=== PATIENT | male | born 1980 | race Hispanic/Latino ===

== ENCOUNTER 2021-04-16 13:18 | Inpatient (IN) | payer OTHER ==
--- OUTSIDE RECORDS SUMMARY | 2021-04-16 13:22 | XMS REPORT | Continuity of Care Document ---
:1980 Author Organization [facility] t Address [address] [place] [address] Care Team Providers Name Role Phone Sammy Mccarty Attending Clinician Problems Condition Condition Condition Status Onset Resolution Last Treating Co mments Source Name Details Category Date Date Treatment Clinician Date Varicella Problem Resolve 2019-02-07 M emoria (disorder) d 13:36:54 l [place] Varicella (disorder) Resolved Problem 02/07/2019 [facility] Allergic Problem Active 2019-02-07 Mem oria rhinitis 13:36:54 l due to Allergic Quinten n pollen rhinitis (disorder) due to pollen (disorder) Active Problem 02/07/2019 [facility] Asthma Problem Active 2019-02-07 Memor ia (disorder) 13:36:54 l Asthma Iraj (disorder) Active Problem 02/07/2019 [facility] Obesity Problem Active 2019-02-07 Tha katty (disorder) 13:36:54 l Obesity Iraj (disorder) Active Problem 02/07/2019 [facility] Allergies, Adverse Reactions, Alerts Allergy Allergy Status Severity Reaction(s) Onset Inactive Treating Comm ents Source Name Type Date Date Clinician Food Food Active Mild Memoria Shellfis Shellfis l nathaniel Galo Social History Social Habit Start Date Stop Date Quantity Comments Source Social History 2016-04-05 2016-04-05 Mami rodriguez 21:08:23 21:08:23 Medications Ordered Filled Start Stop Current Ordering Indication Dosage Frequency Signature Comments Components Source Medication Medication Date Date Medication? Clinician (SIG) Name Name omeprazole 2018-0 Yes 40 mg = 1 Me moria 40 mg oral 5-14 cap, PO, l delayed 20:53: Daily, # Quinten n release 05 30 cap, 3 capsule Refill(s), Pharmacy: [facility] [id number] montelukast 2018-0 Yes 10 mg = 1 M emoria 10 MG Oral 5-14 tab, PO, l Tablet 20:53: Bedtime, # Latosha nn [Singulair] 00 30 tab, 5 Refill(s), Pharmacy: [facility] [id number] Symbicort 2018-0 Yes 2 puff, Memor ia 80/4.5 5-14 INHALATION l inhalation 20:52: , BID, Coco fisher aerosol 57 10.2 gm, 5 with Refill(s), adapter Pharmacy: [email or web address] [id number] 200 ACTUAT 2018-0 Yes 180 Memoria Albuterol 5-14 microgram l 0.09 20:52: = 2 puff, [place] MG/ACTUAT 00 INHALER, Metered Q4H, PRN Dose wheezing, Inhaler coughing, [ProAir or HFA] shortness of breath, # 1 ea, 3 Refill(s), Pharmacy: [facility] [id number] Symbicort Symbicort Yes Leoncio [address] [facility] ProAir HFA ProAir HFA Yes Leoncio [address] [facility] Vital Signs Vital Name Observation Time Observation Value Comments Source BMI Calculated 2018-01-23 20:27:00 Memori al Iraj Systolic (mm Hg) 2018-01-23 20:27:00 Tha rial Iraj Diastolic (mm Hg) 2018-01-23 20:27:00 Mem orial Iraj Temperature Oral (F) 2018-01-23 20:27:[address] [facility] [place] Heart Rate 2018-01-23 20:27:00 [facility] Height 2018-01-23 20:27:[address] [facility] Iraj Weight 2018-01-23 20:27:00 [facility] Iraj Procedures Procedure Date / Time Performed Performing Clinician Nhan Galo Surgical removal of Mami fisher wisdom tooth Encounters Start End Encounter Admission Attending Care Care Encounter Source Date/Time Date/Time Type Type Clinicians Facility Department ID 2021-04-13 2021-04-13 [id number] 2021-04-13 2021-04-13 [facility] [id number] [facility] 2021-01-19 2021-01-19 [facility] [id number] [facility] 2020-09-16 2020-09-16 [facility] [id number] [facility] 2020-07-21 2020-07-21 Out[facility] [id number] [facility] 2020-07-15 2020-07-15 [facility] [id number] [facility] 2020-06-24 2020-06-24 Out[facility] [id number] [facility] 2019-12-04 2019-12-04 [facility] [id number] [facility] 15[facility] 15:50[facility]00 [facility] [place] [facility] s - Drive [facility] Medicine l Medicine Outpati ent Clinics 2019-04-02 2019-04-02 [facility] [id number] 09:45:00 09:45:00 [place] [employer] s - Drive [facility] l Medicine Outpat[facility] ent Clinics 2019-01-16 2019-01-16 [facility] [id number] 08:58:00 08:58:00 [facility] [place] [facility] s - Drive [facility] Medicine l Medicine Outpati ent Clinics 2019-01-08 2019-01-08 [facility] [id number] 11:45:00 11:45:00 [facility] [place] [facility] s - Drive [facility] Medicine l Medicine Outpati ent Clinics 2018-07-21 2018-07-21 Outpatient TASHI Mccarty [facility] [id number] 08:00:00 08:00:00 Jairo Christianson 2018-03-24 2018-03-24 [facility] [id number] 10:15:00 10:15:00 [employer] [facility] ent [facility] 2018-02-14 2018-02-14 Outpatient Pooja Pattont [id number] 13:30:00 13:30:00 [employer] [facility] ent [facility] 2018-01-23 2018-01-23 Outpatient Lul [facility] [id number] 15:15:00 23:59:59 Jairo Christianson Results This patient has no known results.
[2021-04-16] MEDS ORDERED: METHYLPREDNISOLONE 125 MG INJ ONE (19:00)
[2021-04-16] MEDS ORDERED: ALBUTEROL INHALER 60 PUFF/8 GM IH ONE (19:00)
[2021-04-16] MEDS ORDERED: NA CHLORIDE 0.9% 1,000 ML ONE (19:00)
--- NOTE | 2021-04-16 19:01 | RAD REPORT ---
EXAM DESCRIPTION: RAD - Chest Single View - 04/16/2021 6:48 pm CLINICAL HISTORY: Cough;SOB COMPARISON: None TECHNIQUE: AP portable chest image was obtained 04/16/2021 6:48 pm . FINDINGS: Bilateral airspace opacification is present in the lower lung hamlin, worse on the right. Each apex is generally spared. Opacification is more peripheral than central. Bilateral pneumonia is the primary consideration. In the current clinical environment, COVID-19 pneumonia would be likely et iology. Heart and vasculature are normal. No measurable pleural effusion and no pneumothorax. No acute bony abnormality seen. No acute aortic finding. Fullness along the right side of the mediastinum is believ ed to be affects of tortuous vasculature. IMPRESSION: Bilateral pneumonia in the lower lung hamlin. Pattern is nonspecific. In the current clinical environment, COVID-19 pneumonia would be a primary co nsideration.
[2021-04-16 19:31] LABS: Protime INR 1.2
[2021-04-16 19:33] LABS: Absolute Lymphocytes (CBC) 0.6 K/uL (0.7-4.9); Basophils % 0.2 % (0-1.3); Hematocrit 44.3 % (39.6-49.0); Lymphocytes % 5.1 % (15.3-44.8); MPV 9.4 fL (7.6-11.3); RBC Red Blood Cell Count 4.81 M/uL (4.33-5.43)
[2021-04-16] MEDS ORDERED: ACETAMINOPHEN 500 MG TAB ONE (19:54)
[2021-04-16 20:02] LABS: Blood Morphology Comment NOT SEEN (NOT SEEN); Platelet Estimate ADEQ; White Blood Cell Scan OK (OK)
[2021-04-16 20:30] LABS: ALT/SGPT 81 U/L (12-78); AST/SGOT 55 U/L (15-37); Albumin 3.6 g/dL (3.4-5.0); Alkaline Phosphatase 109 U/L (45-117); BUN Blood Urea Nitrogen 15 mg/dL (7-18); Bicarbonate 29 mmol/L (21-32); Bilirubin Direct 0.7 mg/dL (0-0.2); Glucose Level 98 mg/dL (74-106); Magnesium 2.1 mg/dL (1.8-2.4); NT PRO-BNP 23 pg/mL (<125); Potassium 3.4 mmol/L (3.5-5.1); Protein, Total 8.3 g/dL (6.4-8.2); Sodium Level 134 mmol/L (136-145); Troponin (Emerg Dept Use Only) < 0.02 ng/mL (0.0-0.045)
--- NOTE | 2021-04-16 20:47 | EDPHYS ---
Physician Documentation [facility] Name: Roman Smart Age: 40 yrs Sex: Male : 1980 Arrival Date: 04/16/2021 Time: 13:20 Bed 15 Private MD: ED Physician Brayan Delgadillo HPI: 04/16 18:40 This 40 yrs old Male presents to ER via Wheelchair with complaints of Covid+, cp Breathing Difficulty, Vomiting. 18:40 The patient has shortness of breath at rest. cp 18:40 Onset: The symptoms/episode began/occurred gradually. Duration: The symptoms are cp continuous, and are steadily getting worse. Associated signs and symptoms: Pertinent positives: non-productive cough, vomiting, headache. Severity of symptoms: in the emergency department the symptoms are worse markedly. Historical: - Allergies: 13:58 No Known Allergies; ca1 - Home Meds: 13:58 None [Active]; ca1 - PMHx: 13:58 None; ca1 - PSHx: 13:58 None; ca1 - Immunization history:: Client reports having NOT received the Covid vaccine. - Social history:: Smoking status: Patient denies any tobacco usage or history of. ROS: 18:45 Constitutional: Positive for body aches, Negative for chills, fever, poor PO intake. cp 18:45 Eyes: Negative for injury, pain, redness, and discharge. cp 18:45 ENT: Negative for drainage from ear(s), ear pain, sore throat, difficulty swallowing, difficulty handling secretions. 18:45 Neck: Negative for pain with movement, pain at rest, stiffness. 18:45 Cardiovascular: Negative for chest pain, edema, palpitations. 18:45 Respiratory: Positive for cough, "sounds productive", shortness of breath, at rest. Negative for wheezing. 18:45 Abdomen/GI: Positive for nausea and vomiting, Negative for abdominal pain, diarrhea, constipation. 18:45 Back: Negative for injury or acute deformity. 18:45 : Negative for urinary symptoms. 18:45 Neuro: Positive for headache, Negative for altered mental status, syncope, weakness. 18:45 All other systems are negative. Exam: 18:50 Constitutional: The patient appears in no acute distress, alert, awake, cp non-diaphoretic, non-toxic, well developed, well nourished. 18:50 Head/Face: Normocephalic, atraumatic. cp 18:50 Eyes: Periorbital structures: appear normal, Conjunctiva: normal, no exudate, no injection, Sclera: no appreciated abnormality, Lids and lashes: appear normal, bilaterally. 18:50 ENT: External ear(s): are unremarkable, Nose: is normal, Mouth: Lips: moist, Oral mucosa: moist, Posterior pharynx: Airway: no evidence of obstruction, patent, Tonsils: are normal in appearance, swelling, is not appreciated, erythema, that is mild, exudate, is not appreciated. 18:50 Neck: ROM/movement: is normal, is supple, no meningismus, no nuchal rigidity. 18:50 Chest/axilla: Inspection: normal, Palpation: is normal, no crepitus, no tenderness. 18:50 Cardiovascular: Rate: tachycardic, Rhythm: regular, Edema: is not appreciated, JVD: is not appreciated. 18:50 Respiratory: mild respiratory distress is noted, Respirations: labored breathing, that cp is moderate, shallow respirations, that is moderate, Breath sounds: bronchial sounds, that are mild, are heard diffusely, decreased breath sounds, that are moderate, diffuse, stridor, is not appreciated, wheezing: is not appreciated. 18:50 Abdomen/GI: Inspection: abdomen appears normal, Bowel sounds: active, all quadrants, Palpation: abdomen is soft and non-tender, in all quadrants. 18:50 Back: CVA tenderness, is absent. 18:50 Skin: no rash present. 18:50 Neuro: Orientation: to person, place \\T\\ time. Mentation: is normal, Cerebellar function: is grossly normal, Motor: moves all fours, strength is normal, Sensation: is normal. 18:58 ECG was reviewed by the Attending Physician. cp Vital Signs: 13:25 Pulse Ox 87% on R/A; ca1 13:29 Pulse Ox 95% on 2 lpm NC; ca1 14:00 BP 132 / 86; Pulse 86; Resp 20; Temp 97.9(TE); Pulse Ox 96% on 2 lpm NC; Weight 95.25 ca1 kg (R); Height 5 ft. 6 in. (167.64 cm) (R); Pain 0/10; 18:26 BP 151 / 86; Pulse 95; Resp 24; Pulse Ox 95% on R/A; ss 18:37 BP 149 / 98; Pulse 100; Resp 45; Temp 100.7(O); Pulse Ox 90% on R/A; mh5 19:30 BP 129 / 71; Pulse 106; Resp 26 S; Pulse Ox 93% on 2 lpm NC; aa5 14:00 Body Mass Index 33.89 (95.25 kg, 167.64 cm) ca1 MDM: 18:14 Patient medically screened. cp 18:30 Differential diagnosis: CHF exacerbation, Myocardial Infarction pneumonia, Pneumothorax cp pulmonary edema, Pulmonary Embolism Sepsis Unstable Angina. 21:00 Data reviewed: vital signs, nurses notes, lab test result(s), EKG, radiologic studies, cp CT scan, plain films. 21:00 Test interpretation: by ED physician or midlevel provider: ECG, plain radiologic cp studies. Physician consultation: Charlie GAITAN was contacted at 20:45, regarding admission, to the telemetry unit. patient's condition, and will see patient in ED. 04/16 18:22 Order name: Basic Metabolic Panel cp 04/16 18:22 Order name: CBC with Diff cp 04/16 18:22 Order name: LFT's cp 04/16 20:36 Interpretation: Normal except: AST 55; ALT 81; BILID 0.7; TP 8.3; GLOB 4.7; A/G 0.8. cp 08/ 18:22 Order name: Magnesium cp 04/16 18:22 Order name: NT PRO-BNP cp 04/16 18:22 Order name: PT-INR; Complete Time: 20:10 cp 04/16 18:22 Order name: Troponin (emerg Dept Use Only) cp 04/16 18:22 Order name: CRP cp 04/16 18:22 Order name: Ferritin cp 04/16 18:22 Order name: Basic Metabolic Panel EDMS 08 20:36 Interpretation: Normal except: NA 134; K 3.4; CL 95; GFR 83. cp 04/16 18:22 Order name: CBC with Automated Diff; Complete Time: 20:10 EDMS 04/16 20:02 Order name: CBC Smear Scan; Complete Time: 20:10 EDMS 04/17 01:10 Order name: Urinalysis EDMS 04/17 05:37 Order name: D-Dimer EDMS 04/17 05:39 Order name: CBC with Automated Diff EDMS / 05:56 Order name: Comprehensive Metabolic Panel EDMS 04/17 05:56 Order name: Lipid Profile EDMS 04/17 05:56 Order name: C-Reactive Protein EDMS 04/17 05:56 Order name: T4 Free EDMS / 05:56 Order name: Magnesium EDMS 04/17 05:56 Order name: Thyroid Stimulating Hormone EDMS 04/17 05:56 Order name: Ferritin EDMS 04/18 06:08 Order name: CBC with Automated Diff EDMS 04/18 06:18 Order name: D-Dimer EDMS 04/18 06:29 Order name: Comprehensive Metabolic Panel EDMS 04/18 06:29 Order name: C-Reactive Protein EDMS 04/18 06:29 Order name: Magnesium EDMS 04/18 06:29 Order name: Ferritin EDMS 04/18 07:14 Order name: Urine Culture EDMS 04/19 06:05 Order name: CBC with Automated Diff EDMS 04/16 18:22 Order name: XRAY Chest (1 view); Complete Time: 19:09 cp 08/05 19:09 Interpretation: Report reviewed. cp 08/05 18:22 Order name: EKG; Complete Time: 18:22 cp /05 18:22 Order name: Cardiac monitoring; Complete Time: 18:26 cp 08/05 18:22 Order name: EKG - Nurse/Tech; Complete Time: 18:41 cp 08/05 18:22 Order name: IV Saline Lock; Complete Time: 18:26 cp /05 18:22 Order name: Labs collected and sent; Complete Time: 18:26 cp /05 18:22 Order name: O2 Per Protocol; Complete Time: 18:26 cp 08/05 18:22 Order name: O2 Sat Monitoring; Complete Time: 18:26 cp 08/05 20:19 Order name: CT Chest For PE Angio; Complete Time: 20:56 cp 04/19 06:07 Order name: Comprehensive Metabolic Panel EDMS 04/19 06:07 Order name: C-Reactive Protein EDMS 04/19 06:07 Order name: Magnesium EDMS 04/19 06:07 Order name: Ferritin EDMS 04/19 06:38 Order name: D-Dimer EDMS 04/19 11:03 Order name: CBC Smear Scan EDMS 04/20 05:01 Order name: CBC with Automated Diff EDMS 04/20 05:12 Order name: Comprehensive Metabolic Panel EDMS 04/20 05:12 Order name: C-Reactive Protein EDMS 04/20 05:12 Order name: Ferritin EDMS 04/20 08:14 Order name: RAD EDMS 04/21 05:12 Order name: CBC with Automated Diff EDMS 04/21 05:26 Order name: Comprehensive Metabolic Panel EDMS 04/21 05:26 Order name: C-Reactive Protein EDMS 04/21 05:26 Order name: Ferritin EDMS EC:58 Rate is 99 beats/min. Rhythm is regular. MS interval is normal. QRS interval is normal. cp QT interval is normal. T waves are Inverted in lead aVR. Interpreted by me. Reviewed by me. Administered Medications: 18:45 Drug: NS 0.9% 1000 ml Route: IV; Rate: 1 bolus; Site: right antecubital; ss 04/21 13:39 Follow up: Response: No adverse reaction; IV Status: Completed infusion; IV Intake: ll1 1000ml 04/16 18:45 Drug: Albuterol HFA Inhaler 2 puffs Route: Inhalation; ss 18:45 Drug: SOLU-Medrol (methylPrednisoLONE) 125 mg Route: IVP; Site: right antecubital; ss 04/21 13:40 Follow up: Response: No adverse reaction ll1 04/16 19:41 Drug: Tylenol 1000 mg Route: PO; aa5 04/21 13:39 Follow up: Response: No adverse reaction ll1 Disposition Summary: 04/16/21 20:46 Hospitalization Ordered Hospitalization Status: Inpatient Admission cp Provider: Kevin Lynn cp Condition: Fair cp Problem: new cp Symptoms: have improved cp Bed/Room Type: Standard cp Location: [facility] ER HOLD(04/16/21 22:56) aa5 Room Assignment: ERHOLD-(04/16/21 22:56) aa5 Diagnosis - Other viral pneumonia cp - SARS-associated coronavirus as the cause of diseases classified elsewhere cp - Hypoxemia cp Forms: - Medication Reconciliation Form cp - SBAR form cp Addendum: 04/24/2021 19:18 Co-signature as Attending Physician, Brayan segovia Signatures: Dispatcher [employer] Jessie Laureano RN RN aa5 Dolores Rowe RN RN ss Charlie Sanchez, HYDROMETEOROLOGICAL TECHNICIAN-C HYDROMETEOROLOGICAL TECHNICIAN-Cla1 Niko Barton PA PA cp Renee, BETO Abebe RN [facility] Brayan Delgadillo MD MD 7 Yareli Alejandro RN ll1 Corrections: (The following items were deleted from the chart) 04/16 22:56 20:46 Telemetry/MedSurg (Inpatient) [facility]5 22:56 20:46 [facility]5
--- NOTE | 2021-04-16 20:47 | ER ---
Nurse's Notes [facility] Name: Roman Smart Age: 40 yrs Sex: Male : 1980 Arrival Date: 04/16/2021 Time: 13:20 Bed 15 Private MD: Diagnosis: Other viral pneumonia;SARS-associated coronavirus as the cause of diseases classified elsewhere;Hypoxemia Presentation: 04/16 13:57 Chief complaint: Patient states: Covid+ 04/09/2021. SPO2 at home at 84% RA. Reports ca1 headache, SOB, nausea. Coronavirus screen: Client denies travel out of the [place] in the last 14 days. Client reports previous positive COVID test result. Date of collection: April 09, 2021 Staff notified of need for isolation. Ebola Screen: Patient negative for fever greater than or equal to 101.5 degrees Fahrenheit, and additional compatible Ebola Virus Disease symptoms Patient denies exposure to infectious person. Patient denies travel to an Ebola-affected area in the 21 days before illness onset. No symptoms or risks identified at this time. Initial Sepsis Screen: Does the patient meet any 2 criteria? No. Patient's initial sepsis screen is negative. Does the patient have a suspected source of infection? No. Patient's initial sepsis screen is negative. Risk Assessment: Do you want to hurt yourself or someone else? Patient reports no desire to harm self or others. Onset of symptoms was April 06, 2021. 13:57 Method Of Arrival: Wheelchair ca1 13:57 Acuity: JANNY 3 ca1 Historical: - Allergies: 13:58 No Known Allergies; ca1 - Home Meds: 13:58 None [Active]; ca1 - PMHx: 13:58 None; ca1 - PSHx: 13:58 None; ca1 - Immunization history:: Client reports having NOT received the Covid vaccine. - Social history:: Smoking status: Patient denies any tobacco usage or history of. Screenin:27 Abuse screen: Denies threats or abuse. Denies injuries from another. Nutritional ss screening: No deficits noted. Tuberculosis screening: Has had TB. Fall Risk None identified. Assessment: 18:27 General: Appears uncomfortable, ill, Behavior is calm, cooperative, Reports chills for ss >3 days, fever for > 3 days, feeling ill for > 3 days, fatigue for >3 days. Pain: Denies pain. Neuro: Level of Consciousness is awake, alert, obeys commands, Oriented to person, place, time, situation, Hospital Supervisor are equal bilaterally. Cardiovascular: Denies diaphoresis, Capillary refill < 3 seconds is brisk in bilateral fingers Patient's skin is warm and dry. Rhythm is sinus tachycardia. Respiratory: Airway is patent Trachea midline Respiratory effort is even, unlabored, Respiratory pattern is regular, symmetrical, Breath sounds are diminished in left posterior lower lobe and right posterior lower lobe. Respiratory: Reports shortness of breath at rest on exertion cough that is. GI: Reports nausea, vomiting. : No signs and/or symptoms were reported regarding the genitourinary system. EENT: Nares are clear Oral mucosa is moist. Throat is clear. Derm: Skin is intact, is healthy with good turgor, Skin is dry, Skin is pink, warm \T\ dry. normal. Musculoskeletal: Circulation, motion, and sensation intact. Range of motion: intact in all extremities, Swelling absent. 19:20 Neuro: Level of Consciousness is awake, alert, obeys commands, Oriented to person, aa5 place, time, situation. Respiratory: Airway is patent Respiratory effort is even, unlabored, Respiratory pattern is tachypnea. Derm: Skin is pink, warm \T\ dry. 20:00 Reassessment: Pt resting in bed. . Respiratory: Airway is patent Respiratory effort is aa5 even, unlabored, Respiratory pattern is tachypnea. Vital Signs: 13:25 Pulse Ox 87% on R/A; ca1 13:29 Pulse Ox 95% on 2 lpm NC; ca1 14:00 BP 132 / 86; Pulse 86; Resp 20; Temp 97.9(TE); Pulse Ox 96% on 2 lpm NC; Weight 95.25 ca1 kg (R); Height 5 ft. 6 in. (167.64 cm) (R); Pain 0/10; 18:26 BP 151 / 86; Pulse 95; Resp 24; Pulse Ox 95% on R/A; ss 18:37 BP 149 / 98; Pulse 100; Resp 45; Temp 100.7(O); Pulse Ox 90% on R/A; mh5 19:30 BP 129 / 71; Pulse 106; Resp 26 S; Pulse Ox 93% on 2 lpm NC; aa5 14:00 Body Mass Index 33.89 (95.25 kg, 167.64 cm) ca1 ED Course: 13:20 Patient arrived in ED. rg4 13:58 Triage completed. ca1 13:58 Arm band placed on right wrist. ca1 18:11 Niko Barton PA is PHCP. cp 18:11 James Morley MD is Attending Physician. cp 18:25 Dolores Rowe, BETO is Primary Nurse. ss 18:27 Patient has correct armband on for positive identification. Placed in gown. Bed in low ss position. Call light in reach. Side rails up X2. monitor tech on. Pulse ox on. NIBP on. 18:39 Initial lab(s) drawn, by mt, sent to lab. Inserted saline lock: 20 gauge in right mh5 antecubital area, using aseptic technique. Blood collected. 18:41 Troponin (emerg Dept Use Only) Sent. 5 18:41 PT-INR Sent. 5 18:41 NT PRO-BNP Sent. 5 18:41 Magnesium Sent. 5 18:41 LFT's Sent. 5 18:41 Ferritin Sent. 5 18:41 CRP Sent. 5 18:41 Basic Metabolic Panel Sent. mh5 18:42 CBC with Diff Sent. mh5 18:42 XRAY Chest (1 view) Sent. mh5 18:48 XRAY Chest (1 view) In Process Unspecified. EDMS 19:04 Brayan Delgadillo MD is Attending Physician. cp 19:16 Primary Nurse role handed off by Dolores Rowe, BETO mw2 19:41 Jessie Bush, BETO is Primary Nurse. aa5 20:46 Kevin Lynn MD is Hospitalizing Provider. cp 20:47 CT Chest For PE Angio In Process Unspecified. EDMS 22:55 No provider procedures requiring assistance completed. Patient admitted, IV remains in aa5 place. 04/18 07:02 Primary Nurse role handed off by Jessie Bush, BETO bp 07:02 Herson Chaves, RN is Primary Nurse. bp 04/20 07:54 Primary Nurse role handed off by Herson Chaves, BETO bd 04/21 13:38 Yareli Alejandro, BETO is Primary Nurse. ll1 Administered Medications: 04/16 18:45 Drug: NS 0.9% 1000 ml Route: IV; Rate: 1 bolus; Site: right antecubital; 04/21 13:39 Follow up: Response: No adverse reaction; IV Status: Completed infusion; IV Intake: ll1 1000ml 04/16 18:45 Drug: Albuterol HFA Inhaler 2 puffs Route: Inhalation; 18:45 Drug: SOLU-Medrol (methylPrednisoLONE) 125 mg Route: IVP; Site: right antecubital; 04/21 13:40 Follow up: Response: No adverse reaction ll1 04/16 19:41 Drug: Tylenol 1000 mg Route: PO; aa5 04/21 13:39 Follow up: Response: No adverse reaction ll1 Intake: 13:39 IV: 1000ml; Total: 1000ml. ll1 Outcome: 04/16 20:46 Decision to Hospitalize by Provider. cp 22:55 Admitted to ER Hold. Please see [facility] for further documentation. aa5 22:55 Condition: Report given to BETO Sheridan 22:55 Instructed on the need for admit, Demonstrated understanding of instructions. 04/21 13:40 Patient left the ED. ll1 Signatures: Dispatcher [employer] EDMS Sadia Watts Audri RN RN aa5 Dolores Rowe RN RN Niko Salgado PA PA cp Garcia, Rubi Sylvia Joy Herson Johnson RN Jefry Tay 2 Mis Duran RN RN ca1 Yareli Alejandro RN RN ll1
--- NOTE | 2021-04-16 20:54 | RAD REPORT ---
EXAM DESCRIPTION: CT - Chest For Pe Angio - 04/16/2021 8:47 pm CLINICAL HISTORY: Chest pain;SOB COMPARISON: No comparisons TECHNIQUE: Dynamically enhanced 3 mm thick images of the chest were obtained during administration o f approximately 150mL Isovue 370 IV contrast. Coronal and oblique MIP reconstruction images were gene rated and reviewed. Exam utilizes a protocol to evaluate the pulmonary arterial tree. All CT scans are performed using dose optimization technique as appropriate and may include automated exposure control or mA/KV adjustment according to patient size. FINDINGS: No pulmonary emboli are identified. The aorta as imaged shows no acute or suspicious finding. No pericardial thickening or effusion. Extensive ground-glass airspace opacification is present throughout the lung hamlin. This is the well described COVID-19 pneumonia pattern. No cavitation or mass. No endobronchial lesion. No pleural eff usion or pleural thickening. No mediastinal or hilar suspicious masses. No chest wall masses or abnormal axillary lymphadenopathy. IMPRESSION: No pulmonary emboli identified. Moderate severity bilateral COVID-19 pneumonia.
[2021-04-16 21:48] LABS: Ferritin 1732.9 ng/mL (26-388)
--- NOTE | 2021-04-16 22:39 | P.HP ---
Certification for Inpatient Patient admitted to: Inpatient With expected LOS: >2 Midnights Patient will require the following post-hospital care: None Practitioner: I am a practitioner with admitting privileges, knowledge of patient current condition, hospital course, and medical plan of care. Services: Services provided to patient in accordance with Admission requirements found in Title 42 Section 412.3 of the Code of Federal Regulations Patient History Date of Service: 04/16/21 Primary Care Provider: Dr. Bradley Reason for admission: COVID-19 pneumonia History of Present Illness: 40-year-old his 40-year-old male with history of hypertension presents emergency department for shortness of breath. Patient reports he tested positive for Covid on 04/09/2021 with worsening shortness of breath since then. Patient was evaluated in the emergency department, labs were significant for sodium 134 potassium 3.4 chloride 95 ferritin 1732 C-reactive protein 231 white blood cell count 12.5 CT PE protocol with moderate severity Covid pattern without pulmonary embolism at this time. Patient currently requiring nasal conchita chantel at 4 L to maintain saturations greater than 90% will admit for further evaluation and management of COVID-19 pneumonia Allergies No Known Allergies Allergy (Verified 04/16/21 21:50) - Past Medical/Surgical History -: Hypertension -: None Psychosocial/ Personal History: Lives at home with family - Family History Father -: Heart disease - Social History Smoking Status: Never smoker Alcohol use: Yes CD- Drugs: No Caffeine use: Yes Place of Residence: Home Review of Systems 10-point ROS is otherwise unremarkable General: Fever, Chills, Weakness, Malaise Respiratory: Cough, Dry, Shortness of Breath Physical Examination - Physical Exam General: Alert, In no apparent distress, Oriented x3 HEENT: Atraumatic, PERRLA, Mucous membr. moist/pink, EOMI, Sclerae nonicteric Neck: Supple, 2+ carotid pulse no bruit, No LAD, Without JVD or thyroid abnormality Respiratory: Diminished, Other (Tachypnea, dyspnea) Cardiovascular: Regular rate/rhythm, Normal S1 S2 Gastrointestinal: Normal bowel sounds, No tenderness Musculoskeletal: No tenderness Integumentary: No rashes Neurological: Normal gait, Normal speech, Normal strength at 5/5 x4 extr, Normal tone, Normal affect Lymphatics: No axilla or inguinal lymphadenopathy - Studies Laboratory Data (last 24 hrs) 04/16/21 18:30: PT 13.8 H, INR 1.20 04/16/21 18:30: WBC 12.50 H, Hgb 14.8, Hct 44.3, Plt Count 315 04/16/21 18:30: Sodium 134 L, Potassium 3.4 L, BUN 15, Creatinine 1.00, Glucose 98, Magnesium 2.1, Total Bilirubin 1.0, AST 55 H, ALT 81 H, Alkaline Phosphatase 109 Assessment and Plan - Plan Assessment: Acute hypoxic respiratory failure secondary to COVID-19 pneumonia Hypertension Plan: Acute hypoxic respiratory failure secondary to COVID-19 pneumonia: Continue with IV steroids, oral supplements, supplemental oxygen as needed, daily weight saturations. Pulmonology consulted continue with ivermectin. Appreciate further input from pulmonology. Hypertension: Patient reports he is not on medication for hypertension at this time, will continue to monitor blood pressure closely, and medication as needed. DVT PPX: Lovenox Code status: Full Discharge Plan: Home Plan to discharge in: Greater than 2 days - Advance Directives Does patient have a Living Will: No Does patient have a Durable POA for Healthcare: No - Code Status/Comfort Care Code Status Assessed: Yes (Full code) Critical Care: No Time Spent Managing Pts Care (In Minutes): 55
[2021-04-16] MEDS ORDERED: ONDANSETRON 4 MG/2 ML VIAL IV PRN (23:02)
[2021-04-16] MEDS ORDERED: BENZONATATE 100 MG CAP PO PRN (23:02)
[2021-04-17 00:32] LABS: Urine Appearance CLEAR (Clear); Urine Bilirubin NEGATIVE (Negative); Urine Blood NEGATIVE (Negative); Urine Color YELLOW (Yellow); Urine Glucose NEGATIVE (Negative); Urine Protein TRACE (Negative); Urine Specific Gravity >=1.030 (1.005-1.030)
[2021-04-17 01:09] LABS: Urine Microscopic Reflex ORDER UMIC
[2021-04-17 01:51] LABS: Urine Bacteria 20-50 /HPF (NONE SEEN); Urine Mucus 1+ /HPF (NONE SEEN); Urine RBC <5 /HPF (NONE SEEN)
[2021-04-17 05:21] LABS: Absolute Lymphocytes (CBC) 0.6 K/uL (0.7-4.9); Basophils % 0.1 % (0-1.3); Hematocrit 45.1 % (39.6-49.0); Lymphocytes % 5.3 % (15.3-44.8); MPV 9.4 fL (7.6-11.3); RBC Red Blood Cell Count 4.89 M/uL (4.33-5.43)
[2021-04-17 05:53] LABS: ALT/SGPT 76 U/L (12-78); AST/SGOT 56 U/L (15-37); Alkaline Phosphatase 112 U/L (45-117); BUN Blood Urea Nitrogen 14 mg/dL (7-18); Bicarbonate 30 mmol/L (21-32); Bilirubin Total 0.7 mg/dL (0.2-1.0); Ferritin 1864.2 ng/mL (26-388); Glucose Level 152 mg/dL (74-106); HDL Cholesterol 45 mg/dL (40-60); LDL Cholesterol, Calculated 55 (<130); Magnesium 2.3 mg/dL (1.8-2.4); Potassium 4.2 mmol/L (3.5-5.1); Protein, Total 7.2 g/dL (6.4-8.2); Sodium Level 136 mmol/L (136-145); Thyroid Stimulating Hormone 0.183 uIU/mL (0.360-3.740)
--- NOTE | 2021-04-17 07:06 | P.PN ---
Subjective Date of Service: 04/17/21 Primary Care Provider: Dr. Bradley Chief Complaint: COVID-19 pneumonia Subjective: No new changes (about the same, maybe overall feeling better, but says maybe a little harder to take a deep breath, continues with cough) Review of Systems 10-point ROS is otherwise unremarkable Physical Examination - Vital Signs Temperature: 98.2 F Blood Pressure: 133/84 Pulse: 76 Respirations: 28 Pulse Ox (%): 89 - Studies Laboratory Data (last 24 hrs) 04/16/21 18:30: PT 13.8 H, INR 1.20 04/16/21 18:30: WBC 12.50 H, Hgb 14.8, Hct 44.3, Plt Count 315 04/16/21 18:30: Sodium 134 L, Potassium 3.4 L, BUN 15, Creatinine 1.00, Glucose 98, Magnesium 2.1, Total Bilirubin 1.0, AST 55 H, ALT 81 H, Alkaline Phosphatase 109 Assessment & Plan Physician Review Additional Text: Physical Exam General: AAox3, NAD HEENT: normal conjunctiva, sclera anicteric Respiratory: Diminished, tacypneic, shallow respirations on 5 L NC Cardiovascular: Regular rate/rhythm, Normal S1 S2 Gastrointestinal: Normal bowel sounds, No tenderness, soft Integumentary: No rashes Assessment and Plan Acute hypoxic respiratory failure secondary to COVID-19 pneumonia Hypertension Continue IV steroids, oral supplements, supplemental oxygen Wean oxygen as tolerated Pulmonology consulted, continue ivermectin Inflammatory markers significantly elevated, if patient requires high flow oxygen, will order baricitinib monitor vitals / electrolytes trend inflammatory markers anticipate dc home in ~2-3 days Time Spent Managing Pts Care (In Minutes): 35
[2021-04-17] MEDS ORDERED: IBUPROFEN 400 MG TAB PO ONE (07:38)
[2021-04-17] MEDS: ACETAMINOPHEN 500 MG TAB PO PRN (07:39)
[2021-04-17] MEDS ORDERED: IBUPROFEN 400 MG TAB ONE (07:51)
[2021-04-17] MEDS ORDERED: ACETAMINOPHEN 500 MG TAB ONE (07:51)
[2021-04-17] MEDS ORDERED: IBUPROFEN 200 MG TAB PO ONE (07:51)
[2021-04-17] MEDS: ASCORBIC ACID 500 MG TABLET PO SCH ×4 (09:00→20:31)
[2021-04-17] MEDS: IVERMECTIN 3 MG TABLET PO SCH (09:00)
[2021-04-17] MEDS: METHYLPREDNISOLONE 40 MG INJ IV SCH ×3 (09:00→20:31)
[2021-04-17] MEDS ORDERED: ENOXAPARIN 40 MG/0.4 ML SQ SCH (09:00)
[2021-04-17] MEDS: ASPIRIN EC 81 MG TAB PO SCH (09:00)
[2021-04-17] MEDS: ZINC SULFATE 220 MG CAP PO SCH (09:00)
[2021-04-17] MEDS: VITAMIN D 1000 UNIT TAB PO SCH (09:00)
[2021-04-17] MEDS: THIAMINE HCL 100 MG TABLET PO SCH (09:00)
[2021-04-17] MEDS ORDERED: THIAMINE HCL 100 MG TABLET ONE (09:44)
[2021-04-17] MEDS ORDERED: ZINC SULFATE 220 MG CAP ONE (09:44)
[2021-04-17] MEDS ORDERED: METHYLPREDNISOLONE 125 MG INJ ONE ×2 (09:44→13:55)
[2021-04-17] MEDS ORDERED: ASPIRIN EC 81 MG TAB PO ONE (09:45)
[2021-04-17] MEDS ORDERED: ENOXAPARIN 60 MG/0.6 ML SQ ONE (09:45)
[2021-04-17] MEDS ORDERED: ASCORBIC ACID 500 MG TABLET ONE ×3 (09:45→20:11)
--- NOTE | 2021-04-17 10:50 | EKG ---
Test Date: 2021-04-16 Test Time: 18:51:35 Web Content Executive: LIAN MEASUREMENT RESULTS: Intervals: Rate: 99 KS: 150 QRSD: 92 QT: 350 QTc: 449 [place]: P: 43 KS: 150 QRS: 92 T: 23 INTERPRETIVE STATEMENTS: Normal sinus rhythm Rightward axis Borderline ECG No previous ECG available for comparison Electronically Signed On 04-17-21 10:48:17 CDT by Robinson Ferreira
--- NOTE | 2021-04-17 12:44 | P.CNS ---
Date of Consult: 04/17/21 (Tp agreed to TV) Reason for Consult: COVID pneumonia Primary Care Provider: Dr. Bradley Chief Complaint: COVID-19 pneumonia History of Present Illness: Age 40 HTN AW COVID penumonia/ hypoxemia Allergies No Known Allergies Allergy (Verified 04/16/21 21:50) Home Medications: NK [No Home Meds] 04/17/21 - Past Medical/Surgical History Diabetic: No -: Hypertension -: None Psychosocial/ Personal History: Lives at home with family - Family History Father Medical History: Heart disease, Stroke - Social History Alcohol use: Yes CD- Drugs: No Caffeine use: No Place of Residence: Home Review of Systems General: Weakness Respiratory: Shortness of Breath Physical Examination Temp Pulse Resp BP Pulse Ox 98.2 F 83 29 H 116/87 92 04/17/21 08:00 04/17/21 08:00 04/17/21 08:00 04/17/21 08:00 04/17/21 08:00 General: Alert, In no apparent distress, Mild distress Laboratory Data (last 24 hrs) 04/16/21 18:30: PT 13.8 H, INR 1.20 04/16/21 18:30: WBC 12.50 H, Hgb 14.8, Hct 44.3, Plt Count 315 04/16/21 18:30: Sodium 134 L, Potassium 3.4 L, BUN 15, Creatinine 1.00, Glucose 98, Magnesium 2.1, Total Bilirubin 1.0, AST 55 H, ALT 81 H, Alkaline Phosphatase 109 - Problems (1) Pneumonia due to COVID-19 virus Current Visit: Yes Status: Acute Plan: AGe 40 AW COVID penumonia. Extensive bialteral penumonia/ labs and XRyas reviewed
[2021-04-17] MEDS: BARICITINIB 2 MG TABLET PO SCH (15:00)
[2021-04-17] MEDS: RIVAROXABAN 20 MG TABLET PO SCH (17:00)
[2021-04-17] MEDS ORDERED: METHYLPREDNISOLONE 40 MG INJ ONE (20:10)
[2021-04-17] MEDS: MELATONIN 5 MG TABLET PO PRN (22:55)
[2021-04-18 06:04] LABS: Absolute Lymphocytes (CBC) 1.3 K/uL (0.7-4.9); Basophils % 0.2 % (0-1.3); Hematocrit 41.7 % (39.6-49.0); Lymphocytes % 8.1 % (15.3-44.8); MPV 9.2 fL (7.6-11.3); RBC Red Blood Cell Count 4.53 M/uL (4.33-5.43)
[2021-04-18 06:29] LABS: ALT/SGPT 89 U/L (12-78); AST/SGOT 53 U/L (15-37); Albumin 2.7 g/dL (3.4-5.0); Alkaline Phosphatase 101 U/L (45-117); BUN Blood Urea Nitrogen 16 mg/dL (7-18); Bicarbonate 32 mmol/L (21-32); Bilirubin Total 0.4 mg/dL (0.2-1.0); Ferritin 1750.7 ng/mL (26-388); Glucose Level 166 mg/dL (74-106); Magnesium 2.2 mg/dL (1.8-2.4); Potassium 3.7 mmol/L (3.5-5.1); Protein, Total 6.6 g/dL (6.4-8.2); Sodium Level 137 mmol/L (136-145)
[2021-04-18] MEDS ORDERED: ACETAMINOPHEN 500 MG TAB ONE (08:57)
[2021-04-18] MEDS ORDERED: THIAMINE HCL 100 MG TABLET ONE ×2 (08:59→10:40)
[2021-04-18] MEDS ORDERED: ZINC SULFATE 220 MG CAP ONE (08:59)
[2021-04-18] MEDS ORDERED: METHYLPREDNISOLONE 125 MG INJ ONE ×2 (08:59→17:15)
[2021-04-18] MEDS ORDERED: ASPIRIN EC 81 MG TAB PO ONE (08:59)
[2021-04-18] MEDS: THIAMINE HCL 100 MG TABLET PO SCH (09:00)
[2021-04-18] MEDS: ACETAMINOPHEN 500 MG TAB PO PRN (09:00)
[2021-04-18] MEDS: ZINC SULFATE 220 MG CAP PO SCH (09:00)
[2021-04-18] MEDS ORDERED: VITAMIN D 1000 UNIT TAB ONE ×2 (09:00→10:40)
[2021-04-18] MEDS ORDERED: POTASSIUM CL SA 10 MEQ TAB PO ONE ×2 (09:00)
[2021-04-18] MEDS: ASCORBIC ACID 500 MG TABLET PO SCH ×4 (09:00→21:28)
[2021-04-18] MEDS: VITAMIN D 1000 UNIT TAB PO SCH (09:00)
[2021-04-18] MEDS: METHYLPREDNISOLONE 40 MG INJ IV SCH ×3 (09:00→21:28)
[2021-04-18] MEDS: ASPIRIN EC 81 MG TAB PO SCH (09:00)
[2021-04-18] MEDS: BARICITINIB 2 MG TABLET PO SCH (09:00)
[2021-04-18] MEDS ORDERED: TRAMADOL HCL 50 MG TAB PO PRN (10:18)
[2021-04-18] MEDS ORDERED: ASCORBIC ACID 500 MG TABLET ONE ×3 (10:41→20:43)
--- NOTE | 2021-04-18 11:18 | P.PN ---
Subjective Date of Service: 04/18/21 Primary Care Provider: Dr. Bradley Chief Complaint: COVID-19 pneumonia Subjective: No new changes breathing about the same, less appetite. c/o body aches all over and requests pain med <Pat Robertson - Last Filed: 04/18/21 11:11> Date of Service: 04/18/21 <Kevin Lynn - Last Filed: 04/18/21 15:14> Physical Examination - Vital Signs Temperature: 98 F Blood Pressure: 130/89 Pulse: 70 Respirations: 25 Pulse Ox (%): 94 <Pat Robertson - Last Filed: 04/18/21 11:11> Assessment And Plan Physician Review: Patient Assessed, Agree with Above Assessment and Plan Physician Review Additional Text: Physical Exam General: AAox3, NAD HEENT: normal conjunctiva, sclera anicteric, EOMI Respiratory: Diminished, tacypneic, shallow respirations on 13 L NC Cardiovascular: Regular rate/rhythm Gastrointestinal: No tenderness, soft, non-distended MSK: No swelling Integumentary: No rashes Assessment and Plan Acute hypoxic respiratory failure secondary to COVID-19 pneumonia Hypertension Continue IV steroids, oral supplements, supplemental oxygen Wean oxygen as tolerated Pulmonology consulted, continue ivermectin Inflammatory markers improved, if patient requires high flow oxygen, will order baricitinib tramadol prn for pain monitor vitals / electrolytes trend inflammatory markers anticipate dc home in ~2-3 days Time Spent Managing PTS Care (In Minutes): 35 <Pat Robertson - Last Filed: 04/18/21 11:11> Physician Review Additional Text: Patient seen and examined at bedside this morning with Pat Robertson Plan of care discussed as noted above. requiring HFNC, baricitinib ordered 04/17 inflammatory markers improving Gen: NAD. Pulm: tachypneic with cough on 13L NC CV: Regular rate/rhythm, no edema. Abd: soft, NTND. normal speech/affect <Kevin Lynn - Last Filed: 04/18/21 15:14>
[2021-04-18] MEDS: RIVAROXABAN 20 MG TABLET PO SCH (17:00)
[2021-04-18] MEDS ORDERED: METHYLPREDNISOLONE 40 MG INJ ONE (20:43)
[2021-04-19 05:49] LABS: Absolute Lymphocytes (CBC) 1.3 K/uL (0.7-4.9); Basophils % 0.5 % (0-1.3); Hematocrit 41.6 % (39.6-49.0); Lymphocytes % 8.2 % (15.3-44.8); MPV 9.1 fL (7.6-11.3); RBC Red Blood Cell Count 4.55 M/uL (4.33-5.43)
[2021-04-19 06:07] LABS: ALT/SGPT 112 U/L (12-78); AST/SGOT 56 U/L (15-37); Albumin 2.7 g/dL (3.4-5.0); Alkaline Phosphatase 95 U/L (45-117); BUN Blood Urea Nitrogen 20 mg/dL (7-18); Bicarbonate 32 mmol/L (21-32); Bilirubin Total 0.5 mg/dL (0.2-1.0); Ferritin 1311.6 ng/mL (26-388); Glucose Level 173 mg/dL (74-106); Magnesium 2.4 mg/dL (1.8-2.4); Potassium 3.8 mmol/L (3.5-5.1); Protein, Total 6.6 g/dL (6.4-8.2); Sodium Level 138 mmol/L (136-145)
[2021-04-19] MEDS: METHYLPREDNISOLONE 40 MG INJ IV SCH ×3 (09:00→21:00)
[2021-04-19] MEDS: THIAMINE HCL 100 MG TABLET PO SCH (09:00)
[2021-04-19] MEDS: IVERMECTIN 3 MG TABLET PO SCH (09:00)
[2021-04-19] MEDS ORDERED: POTASSIUM CL SA 10 MEQ TAB PO ONE ×2 (09:00→10:06)
[2021-04-19] MEDS: ASCORBIC ACID 500 MG TABLET PO SCH ×4 (09:00→21:00)
[2021-04-19] MEDS: BARICITINIB 2 MG TABLET PO SCH (09:00)
[2021-04-19] MEDS: ZINC SULFATE 220 MG CAP PO SCH (09:00)
[2021-04-19] MEDS: ASPIRIN EC 81 MG TAB PO SCH (09:00)
[2021-04-19] MEDS: VITAMIN D 1000 UNIT TAB PO SCH (09:00)
[2021-04-19] MEDS ORDERED: ASCORBIC ACID 500 MG TABLET ONE ×3 (10:05→21:28)
[2021-04-19] MEDS ORDERED: METHYLPREDNISOLONE 125 MG INJ ONE ×2 (10:05→18:02)
[2021-04-19] MEDS ORDERED: THIAMINE HCL 100 MG TABLET ONE (10:05)
[2021-04-19] MEDS ORDERED: ASPIRIN EC 81 MG TAB PO ONE (10:06)
[2021-04-19] MEDS ORDERED: VITAMIN D 1000 UNIT TAB ONE (10:20)
[2021-04-19] MEDS ORDERED: ZINC SULFATE 220 MG CAP ONE (10:20)
[2021-04-19 11:02] LABS: Blood Morphology Comment NOT SEEN (NOT SEEN); Platelet Estimate INCR; White Blood Cell Scan OK (OK)
--- NOTE | 2021-04-19 11:14 | P.PN ---
Subjective Date of Service: 04/19/21 Primary Care Provider: Dr. Bradley Chief Complaint: COVID-19 pneumonia feels a little better. cough still present but maybe improved. has an appetite and passing gas. <Pat Robertson - Last Filed: 04/19/21 17:18> Date of Service: 04/19/21 <Kevin Lynn - Last Filed: 04/19/21 22:54> Review of Systems 10-point ROS is otherwise unremarkable <Kevin Lynn - Last Filed: 04/19/21 22:54> Physical Examination - Vital Signs Temperature: 98.1 F Blood Pressure: 139/81 Pulse: 62 Respirations: 31 Pulse Ox (%): 91 <Pat Robertson - Last Filed: 04/19/21 17:18> Assessment And Plan Physician Review: Patient Assessed, Agree with Above Assessment and Plan Physician Review Additional Text: Physical Exam General: AAox3, NAD HEENT: normal conjunctiva, sclera anicteric, EOMI Respiratory: Diminished, mildly labored respirations, 92% on 15L NC Cardiovascular: Regular rate/rhythm Gastrointestinal: No tenderness, soft, non-distended MSK: No swelling Integumentary: No rashes Neuro: Normal speech Assessment and Plan Acute hypoxic respiratory failure secondary to COVID-19 pneumonia Hypertension Continue IV steroids, oral supplements, supplemental oxygen Wean oxygen as tolerated Pulmonology consulted Ivermectin course completed Inflammatory markers improving Baricitinib started 04/17 Tramadol prn for pain Monitor vitals / electrolytes Trend inflammatory markers anticipate dc home in ~2-3 days Time Spent Managing PTS Care (In Minutes): 35 <Pat Robertson - Last Filed: 04/19/21 17:18> Physician Review Additional Text: Patient seen and examined with Pat Robertson. Plan of care discussed and agree as noted above. feels slightly better, wean O2, continue treatment as noted above, harrison <Kevin Lynn - Last Filed: 04/19/21 22:54>
--- NOTE | 2021-04-19 12:23 | P.PN ---
Subjective Date of Service: 04/19/21 Primary Care Provider: Dr. Bradley Chief Complaint: COVID-19 pneumonia Subjective: Improving (On HF) Review of Systems General: Weakness Respiratory: Shortness of Breath Physical Examination - Vital Signs Temperature: 98.1 F Blood Pressure: 139/81 Pulse: 62 Respirations: 31 Pulse Ox (%): 91 - Physical Exam General: Alert, In no apparent distress, Oriented x3, Cooperative Assessment & Plan - Problems (Diagnosis) (1) Pneumonia due to COVID-19 virus Current Visit: Yes Status: Acute Plan: Improving Max therapy/ NC CWTitrate O2 sat of 90% Physician Review: Patient Assessed, Agree with Above Assessment and Plan
[2021-04-19] MEDS ORDERED: ONDANSETRON 4 MG/2 ML VIAL ONE (15:39)
[2021-04-19] MEDS ORDERED: NA CHLORIDE 0.9% 500 ML ONE (15:40)
[2021-04-19] MEDS: RIVAROXABAN 20 MG TABLET PO SCH (17:00)
[2021-04-19] MEDS ORDERED: METHYLPREDNISOLONE 40 MG INJ ONE (21:28)
[2021-04-19] MEDS ORDERED: MELATONIN 5 MG TABLET PO ONE (21:41)
[2021-04-19] MEDS: MELATONIN 5 MG TABLET PO PRN (22:07)
[2021-04-20 04:47] LABS: Basophils % 0.1 % (0-1.3); Lymphocytes % 6.8 % (15.3-44.8); RBC Red Blood Cell Count 4.44 M/uL (4.33-5.43)
[2021-04-20 05:12] LABS: ALT/SGPT 192 U/L (12-78); AST/SGOT 75 U/L (15-37); Albumin 2.8 g/dL (3.4-5.0); Alkaline Phosphatase 95 U/L (45-117); BUN Blood Urea Nitrogen 21 mg/dL (7-18); Bicarbonate 32 mmol/L (21-32); Bilirubin Total 0.7 mg/dL (0.2-1.0); Ferritin 1319.9 ng/mL (26-388); Glucose Level 186 mg/dL (74-106); Potassium 4.2 mmol/L (3.5-5.1); Protein, Total 6.5 g/dL (6.4-8.2); Sodium Level 137 mmol/L (136-145)
--- NOTE | 2021-04-20 06:29 | P.PN ---
Subjective Date of Service: 04/20/21 Primary Care Provider: Dr. Bradley Chief Complaint: COVID-19 pneumonia Subjective: No new changes (states he is feeling about the same, hard to take deep breaths, eating ok, no n/v/d, last BM 2-3 days ago) <Pat Robertson - Last Filed: 04/20/21 17:17> Date of Service: 04/20/21 <Kevin Lynn - Last Filed: 04/20/21 21:21> Review of Systems 10-point ROS is otherwise unremarkable <Pat Robertson - Last Filed: 04/20/21 17:17> Physical Examination - Vital Signs Temperature: 97.5 F Blood Pressure: 155/92 Pulse: 59 Respirations: 26 Pulse Ox (%): 95 <Pat Robertson - Last Filed: 04/20/21 17:17> Assessment And Plan - Plan Physical Exam General: AAox3, NAD, cooperative HEENT: normal conjunctiva, sclera anicteric, EOMI Respiratory: Diminished, mildly labored respirations Cardiovascular: Regular rate/rhythm Gastrointestinal: No tenderness, non-distended MSK: No swelling Integumentary: No rashes Neuro: Normal speech Assessment and Plan Acute hypoxic respiratory failure secondary to COVID-19 pneumonia Hypertension Continue IV steroids, oral supplements, supplemental oxygen Wean oxygen as tolerated Pulmonology consulted Ivermectin course completed Inflammatory markers improving Baricitinib started 04/17 Tramadol prn for pain Monitor vitals / electrolytes Trend inflammatory markers anticipate dc home in ~2-3 days VTE prophylaxis: xarelto Physician Review: Patient Assessed, Agree with Above Assessment and Plan Time Spent Managing PTS Care (In Minutes): 35 <Pat Robertson - Last Filed: 04/20/21 17:17> - Plan Patient seen and examined with Pat Robertson. Plan of care discussed and agree as noted above. <Kevin Lynn - Last Filed: 04/20/21 21:21>
[2021-04-20] MEDS ORDERED: METHYLPREDNISOLONE 125 MG INJ ONE ×2 (08:09→21:10)
[2021-04-20] MEDS ORDERED: THIAMINE HCL 100 MG TABLET ONE (08:09)
[2021-04-20] MEDS ORDERED: ASCORBIC ACID 500 MG TABLET ONE ×3 (08:09→21:07)
[2021-04-20] MEDS ORDERED: ZINC SULFATE 220 MG CAP ONE (08:10)
[2021-04-20] MEDS ORDERED: VITAMIN D 1000 UNIT TAB ONE (08:10)
[2021-04-20] MEDS ORDERED: ASPIRIN EC 81 MG TAB PO ONE (08:10)
[2021-04-20] MEDS ORDERED: POLYETHYL GLY 3350 17 GM/DOSE PO ONE ×2 (08:12→10:00)
--- NOTE | 2021-04-20 08:14 | RAD REPORT ---
EXAM DESCRIPTION: [facility] Single View04/20/2021 7:10 am CLINICAL HISTORY: Chest pain COMPARISON: April 16, 2021 FINDINGS: Worsening in bilateral pulmonary opacities. Heart is mildly enlarged IMPRESSION: Worsening in bilateral pulmonary opacities probably pneumonia
[2021-04-20] MEDS: METHYLPREDNISOLONE 40 MG INJ IV SCH ×2 (08:22→14:00)
[2021-04-20] MEDS: ASCORBIC ACID 500 MG TABLET PO SCH ×4 (08:22→20:57)
[2021-04-20] MEDS: ASPIRIN EC 81 MG TAB PO SCH (08:22)
[2021-04-20] MEDS: VITAMIN D 1000 UNIT TAB PO SCH (08:22)
[2021-04-20] MEDS: ZINC SULFATE 220 MG CAP PO SCH (08:22)
[2021-04-20] MEDS: THIAMINE HCL 100 MG TABLET PO SCH (08:22)
[2021-04-20] MEDS: BARICITINIB 2 MG TABLET PO SCH (09:00)
[2021-04-20 09:57] VITALS: BMI 33.7
[2021-04-20] MEDS ORDERED: POLYETHYL GLY 3350 17 GM/DOSE ONE (10:57)
[2021-04-20] MEDS ORDERED: METHYLPREDNISOLONE 40 MG INJ ONE (11:10)
[2021-04-20] MEDS: RIVAROXABAN 20 MG TABLET PO SCH (17:00)
[2021-04-20] MEDS: METHYLPREDNISOLONE 125 MG INJ IV SCH (20:57)
[2021-04-20] MEDS ORDERED: FUROSEMIDE 20 MG/ 2ML VIAL IV ONE (21:17)
--- NOTE | 2021-04-20 21:18 | P.PN ---
Subjective Date of Service: 04/20/21 Primary Care Provider: Dr. Bradley Chief Complaint: COVID-19 pneumonia NC for now on 12 l Review of Systems Respiratory: Shortness of Breath Physical Examination - Vital Signs Temperature: 97.5 F Blood Pressure: 155/92 Pulse: 59 Respirations: 26 Pulse Ox (%): 95 - Physical Exam General: Alert, In no apparent distress, Mild distress Assessment & Plan - Problems (Diagnosis) (1) Pneumonia due to COVID-19 virus Current Visit: Yes Status: Acute Plan: Resp failure CW wean down on O2 plan for DC onMAx therapy/ BP elevated Lasix Physician Review: Patient Assessed, Agree with Above Assessment and Plan
[2021-04-20] MEDS ORDERED: FUROSEMIDE 20 MG/ 2ML VIAL ONE (22:08)
[2021-04-21 05:07] LABS: Absolute Lymphocytes (CBC) 0.8 K/uL (0.7-4.9); Basophils % 0.3 % (0-1.3); Hematocrit 44.8 % (39.6-49.0); Lymphocytes % 4.8 % (15.3-44.8); RBC Red Blood Cell Count 4.93 M/uL (4.33-5.43)
[2021-04-21 05:25] LABS: ALT/SGPT 264 U/L (12-78); AST/SGOT 77 U/L (15-37); Albumin 2.8 g/dL (3.4-5.0); Alkaline Phosphatase 100 U/L (45-117); BUN Blood Urea Nitrogen 23 mg/dL (7-18); Bicarbonate 32 mmol/L (21-32); Bilirubin Total 0.8 mg/dL (0.2-1.0); Ferritin 1473.9 ng/mL (26-388); Glucose Level 178 mg/dL (74-106); Potassium 4.2 mmol/L (3.5-5.1); Protein, Total 6.5 g/dL (6.4-8.2); Sodium Level 136 mmol/L (136-145)
[2021-04-21] MEDS ORDERED: THIAMINE HCL 100 MG TABLET ONE (08:07)
[2021-04-21] MEDS ORDERED: ZINC SULFATE 220 MG CAP ONE (08:07)
[2021-04-21] MEDS ORDERED: ASPIRIN EC 81 MG TAB PO ONE (08:07)
[2021-04-21] MEDS ORDERED: ASCORBIC ACID 500 MG TABLET ONE (08:07)
[2021-04-21] MEDS ORDERED: VITAMIN D 1000 UNIT TAB ONE (08:08)
[2021-04-21] MEDS ORDERED: METHYLPREDNISOLONE 40 MG INJ ONE ×2 (08:08→11:05)
[2021-04-21] MEDS: BARICITINIB 2 MG TABLET PO SCH (09:00)
[2021-04-21] MEDS: ASCORBIC ACID 500 MG TABLET PO SCH ×2 (09:00→12:46)
[2021-04-21] MEDS: THIAMINE HCL 100 MG TABLET PO SCH (09:00)
[2021-04-21] MEDS: ZINC SULFATE 220 MG CAP PO SCH (09:00)
[2021-04-21] MEDS: METHYLPREDNISOLONE 125 MG INJ IV SCH (09:00)
[2021-04-21] MEDS: ASPIRIN EC 81 MG TAB PO SCH (09:00)
[2021-04-21] MEDS: VITAMIN D 1000 UNIT TAB PO SCH (09:00)
[2021-04-21 10:06] VITALS: O2SAT 95
--- NOTE | 2021-04-21 12:41 | P.DS ---
Admission Date: 04/16/21 Discharge Date: 04/21/21 Primary Care Provider: Dr. Bradley Disposition: ROUTINE DISCHARGE Discharge Condition: FAIR Reason for Admission: COVID-19 pneumonia Brief History of Present Illness: 40-year-old his 40-year-old male with history of hypertension presented to the emergency department for shortness of breath. Patient tested positive for Covid on 04/09/2021 with worsening shortness of breath since then. Patient was evaluated in the emergency department, labs were significant for sodium 134 potassium 3.4 chloride 95 ferritin 1732 C-reactive protein 231 white blood cell count 12.5 CT PE protocol with moderate severity Covid pattern without pulmonary embolism at this time. Patient was requiring nasal cannula at 4 L to maintain saturations greater than 90%. Patient admitted for further management. Hospital Course: Diagnosis Acute hypoxic respiratory failure with hypoxia COVID-19 pneumonia Hypertension Patient admitted to the medical floor kept on oxygen by nasal cannula, treated with IV steroid, vitamin and zinc supplementation. Pulmonary consulted and patient treated with Baracitinib. Patient respiratory condition clinically improved. He was weaned off oxygen to room air at rest. Patient deemed clinically stable for discharge. He is discharged with steroids, and vitamin supplementation. His D-dimer was elevated. Patient discharged with Xarelto for anticoagulation. Vital Signs/Physical Exam: Temp Pulse Resp BP Pulse Ox 98.2 F 63 22 H 149/90 H 95 04/21/21 08:00 04/21/21 08:00 04/21/21 08:00 04/21/21 08:00 04/21/21 08:00 General: Alert, In no apparent distress, Oriented x3 HEENT: Mucous membr. moist/pink Neck: Supple, JVD not distended Respiratory: Other (Nonlabored breathing) Cardiovascular: No edema, Regular rate/rhythm, Normal S1 S2 Gastrointestinal: Soft and benign, Non-distended Musculoskeletal: No swelling Integumentary: No rashes Neurological: Normal strength at 5/5 x4 extr Laboratory Data at Discharge: WBC 16.80 K/uL (4.3-10.9) H 04/21/21 04:41 Hgb 14.9 g/dL (13.6-17.9) 04/21/21 04:41 Hct 44.8 % (39.6-49.0) 04/21/21 04:41 Plt Count 552 K/uL (152-406) H 04/21/21 04:41 PT 13.8 SECONDS (9.5-12.5) H 04/16/21 18:30 INR 1.20 04/16/21 18:30 Sodium 136 mmol/L (136-145) 04/21/21 04:41 Potassium 4.2 mmol/L (3.5-5.1) 04/21/21 04:41 BUN 23 mg/dL (7-18) H 04/21/21 04:41 Creatinine 0.73 mg/dL (0.55-1.3) 04/21/21 04:41 Glucose 178 mg/dL (74-106) H 04/21/21 04:41 Magnesium 2.4 mg/dL (1.8-2.4) 04/19/21 05:14 Total Bilirubin 0.8 mg/dL (0.2-1.0) 04/21/21 04:41 AST 77 U/L (15-37) H 04/21/21 04:41 ALT 264 U/L (12-78) H 04/21/21 04:41 Alkaline Phosphatase 100 U/L (45-117) 04/21/21 04:41 Triglycerides 108 mg/dL (<150) 04/17/21 04:12 Cholesterol 122 mg/dL (<200) 04/17/21 04:12 HDL Cholesterol 45 mg/dL (40-60) 04/17/21 04:12 Cholesterol/HDL Ratio 2.71 04/17/21 04:12 Home Medications: Ascorbic Acid [Vitamin C*] 1,000 mg PO TID #180 tablet 04/21/21 Benzonatate [Tessalon Perle*] 100 mg PO TID PRN #30 cap 04/21/21 Cholecalciferol (Vitamin D3) [Vitamin D3] 4,000 unit PO DAILY #60 capsule 04/21/21 Rivaroxaban [Xarelto] 20 mg PO DAILY #30 tablet 04/21/21 Thiamine HCl [Vitamin B-1*] 200 mg PO DAILY #60 tablet 04/21/21 Zinc Sulfate [Zinc Sulfate*] 220 mg PO DAILY #30 cap 04/21/21 predniSONE [Deltasone] 20 mg PO BID #21 tab 04/21/21 New Medications: predniSONE [Deltasone] 20 mg PO BID #21 tab Benzonatate [Tessalon Perle*] 100 mg PO TID PRN #30 cap PRN Reason: Cough Thiamine HCl [Vitamin B-1*] 200 mg PO DAILY #60 tablet Ascorbic Acid [Vitamin C*] 1,000 mg PO TID #180 tablet Cholecalciferol (Vitamin D3) [Vitamin D3] 4,000 unit PO DAILY #60 capsule Rivaroxaban [Xarelto] 20 mg PO DAILY #30 tablet Zinc Sulfate [Zinc Sulfate*] 220 mg PO DAILY #30 cap Diet: Regular Activity: Ad sonny Followup: Wing Molina MD [ACTIVE - CAN ADMIT] - 1 Week Leoncio Bradley DO [Primary Care Provider] - Time spent managing pt's care (in minutes): 40
[2021-04-21 13:32] VITALS: BP 147/94; TEMP 97.6
== END 2021-04-21 13:38 | disposition home or self-care (01) | DRG 177 ==
LOC: ER 13:18 → ERHOLD 22:02
PROVIDERS: ADMIT Hospitalist; ATTEND Internal Medicine
DX: U07.1 COVID-19 (principal); J12.82 Pneumonia due to coronavirus disease 2019; J96.01 Acute respiratory failure with hypoxia; I10 Essential (primary) hypertension; Z79.52 Long term (current) use of systemic steroids; Z79.899 Other long term (current) drug therapy; Z79.01 Long term (current) use of anticoagulants
CPT/HCPCS: 36415; 71045; 71275; 80048; 80053; 80061; 80076; 81003; 81015; 82728; 83735; 83880; 84439; 84443; 84484; 85025; 85379; 85610; 86140; 87086; 87088; 93005; 94760; 96361; 96374; 99285; J1650; J1940; J2405; J2920; J2930; J7030; J7050; Q9967

== ENCOUNTER 2021-04-25 21:04 | Emergency (ER) | payer OTHER ==
--- OUTSIDE RECORDS SUMMARY | 2021-04-25 21:06 | XMS REPORT | Continuity of Care Document ---
:1980 Author Organization [facility] t Address [address] [place] [address] Care Team Providers Name Role Phone Sammy Mccarty Attending Clinician Problems Condition Condition Condition Status Onset Resolution Last Treating Co mments Source Name Details Category Date Date Treatment Clinician Date Varicella Problem Resolve 2019-02-07 M emoria (disorder) d 13:36:54 l Inez Varicella (disorder) Resolved Problem 02/07/2019 [facility] Allergic Problem Active 2019-02-07 Mem oria rhinitis 13:36:54 l due to Allergic Quinten n pollen rhinitis (disorder) due to pollen (disorder) Active Problem 02/07/2019 [facility] Asthma Problem Active 2019-02-07 Memor ia (disorder) 13:36:54 l Asthma Inez (disorder) Active Problem 02/07/2019 [facility] Obesity Problem Active 2019-02-07 Tha katty (disorder) 13:36:54 l Obesity Inez (disorder) Active Problem 02/07/2019 [facility] Allergies, Adverse Reactions, Alerts Allergy Allergy [...] 05 30 cap, 3 capsule Refill(s), Pharmacy: [facility] [id number] montelukast 2018-0 Yes 10 mg = 1 M emoria 10 MG Oral 5-14 tab, PO, l Tablet 20:53: Bedtime, # Latosha nn [Singulair] 00 30 tab, 5 Refill(s), Pharmacy: [facility] [id number] Symbicort 2018-0 Yes 2 puff, Memor ia 80/4.5 5-14 INHALATION l inhalation 20:52: , BID, Coco fisher aerosol 57 10.2 gm, 5 with Refill(s), adapter Pharmacy: [facility] [id number] 200 ACTUAT 2018-0 Yes 180 Memoria Albuterol 5-14 microgram l 0.09 20:52: = 2 puff, Inez MG/ACTUAT 00 INHALER, Metered Q4H, PRN Dose wheezing, Inhaler coughing, [ProAir or HFA] shortness of breath, # 1 ea, 3 Refill(s), Pharmacy: [facility] [id number] Symbicort Symbicort Yes Leoncio [address] [facility] ProAir HFA ProAir HFA Yes Leoncio [address] [facility] Vital Signs Vital Name Observation Time Observation Value Comments Source BMI Calculated 2018-01-23 20:27:00 Memori al Iraj Systolic (mm Hg) 2018-01-23 20:27:00 Tha rial Iraj Diastolic (mm Hg) 2018-01-23 20:27:00 Mem orial Inez Temperature Oral (F) 2018-01-23 20:27:00 98.1 F [facility] [place] Heart Rate 2018-01-23 20:27:00 [facility] Iraj Height 2018-01-23 20:27:00 167.64 cm [facility] Iraj Weight 2018-01-23 20:27:00 [facility] Inez Procedures Procedure Date / Time Performed Performing Clinician Nhan Galo Surgical removal of Mami fisher wisdom tooth Encounters Start End Encounter Admission Attending Care Care Encounter Source Date/Time Date/Time Type Type Clinicians Facility Department ID 2021-04-16 2021-04-16 [facility] [id number] [facility] 2021-04-13 2021-04-13 Out[facility] [id number] [facility] 2021-04-13 2021-04-13 Out[facility] [id number] [facility] 2021-01-19 2021-01-19 Outpatient [facility] [id number] [facility] 2020-09-16 2020-09-16 [facility] [id number] [facility] 2020-07-21 2020-07-21 Out[facility] [id number] [facility] 2020-07-15 2020-07-15 Out[facility] [id number] [facility] 2020-06-24 2020-06-24 Outpatient [facility] [id number] [facility] 2019-12-04 2019-12-04 [facility] [id number] [address] 15[facility] 15:50:[address] [facility] Out[facility] Clinics 2019-04-02 2019-04-02 [facility] [id number] 09:45:00 09:45:[address] [facility] Out[facility] Clinics 2019-01-16 2019-01-16 [facility] [id number] 08:58:00 08:58:00 [place] [address] [facility] Medicine l Medicine Outpati ent Clinics 2019-01-08 2019-01-08 [facility] [id number] 11:45:00 11:45:00 t [place] [facility] 2018-07-21 2018-07-21 Ambulatory nullFlavo [facility] [id number] Memoria 14:00:00 14:00:00 Pre-Reg r Primary 07 l Care Troy Reina kevyn 2018-07-21 2018-07-21 Outpatient GARCÍA MARIANO [id number] Memoria 08:00:00 08:00:00 07 violet Galo 2018-07-21 2018-07-21 [facility] [id number] 08:00:00 08:00:00 Jairo 07 Sammy 2018-03-24 2018-03-24 [facility] [id number] 10:15:00 10:15:00 [place] [facility] Clin[facility] 2018-02-14 2018-02-14 [facility] [id number] 13:30:00 13:30:00 [place] [facility] 2018-01-23 2018-01-24 [place] [id number] [facility] 20:15:00 04:59:59 r Primary 06 l Care Troy Reina 2018-01-23 2018-01-23 Outpatient Lul MG [id number] 15:15:00 23:59:59 Jairo Covarrubias Sammy 2018-01-23 2018-01-23 Outpatient GARCÍA MARIANO [id number] Memoria 15:15:00 15:15:00 06 violet Galo 2016-11-22 2016-11-22 Outpatient GARCÍA MARIANO [id number] [facility]oria 09:15:00 09:15:00 05 violet Galo 2016-11-03 2016-11-03 Outpatient GARCÍA SALEHIE [id number] Memoria 17:45:00 17:45:00 04 violet Galo 2016-07-12 2016-07-12 Outpatient GARCÍA MARIANO [id number] [facility]oria 10:30:00 10:30:00 03 violet Galo 2016-07-10 2016-07-10 Outpatient GARCÍA MARIANO [id number] [facility] 09:00:00 09:00:00 02 violet Galo 2016-05-21 2016-05-21 Outpatient [facility] [id number] [facility] 08:45:00 08:45:00 01 violet Galo Results This patient has no known results.
[2021-04-26] MEDS ORDERED: NA CHLORIDE 0.9% 1,000 ML ONE (02:05)
[2021-04-26] MEDS ORDERED: DIPHENHYDRAMINE 50 MG/ML VIAL ONE (02:05)
[2021-04-26] MEDS ORDERED: METOCLOPRAMIDE 10 MG/2mL INJ ONE (02:05)
[2021-04-26 02:14] LABS: Absolute Lymphocytes (CBC) 1.5 K/uL (0.7-4.9); Basophils % 0.1 % (0-1.3); Hematocrit 46.1 % (39.6-49.0); MPV 8.8 fL (7.6-11.3); RBC Red Blood Cell Count 5.03 M/uL (4.33-5.43)
[2021-04-26 03:05] LABS: Protime INR 1.35
[2021-04-26 03:24] LABS: ALT/SGPT 146 U/L (12-78); AST/SGOT 20 U/L (15-37); Alkaline Phosphatase 78 U/L (45-117); BUN Blood Urea Nitrogen 20 mg/dL (7-18); Bicarbonate 31 mmol/L (21-32); Bilirubin Direct 0.3 mg/dL (0-0.2); Bilirubin Total 0.9 mg/dL (0.2-1.0); Glucose Level 110 mg/dL (74-106); Magnesium 2.1 mg/dL (1.8-2.4); NT PRO-BNP 26 pg/mL (<125); Potassium 4.1 mmol/L (3.5-5.1); Protein, Total 5.8 g/dL (6.4-8.2); Sodium Level 140 mmol/L (136-145); Troponin (Emerg Dept Use Only) < 0.02 ng/mL (0.0-0.045)
--- NOTE | 2021-04-26 05:00 | EDPHYS ---
Physician Documentation [facility] Name: Roman Smart Age: 40 yrs Sex: Male : 1980 Arrival Date: 04/25/2021 Time: 21:07 Bed Treatment Private MD: ED Physician Brayan Delgadillo HPI: 04/26 01:05 This 40 yrs old Male presents to ER via Ambulatory with complaints of Chest mh7 Pain, Anxiety, Chest Pain > 30 y/o. 01:21 The patient presents to the emergency department with anxiety, Concerned about Covid, mh7 Difficulty sleeping. Onset: The symptoms/episode began/occurred 3 day(s) ago. Past psychiatric history: Prior diagnosis: Anxiety , Psychiatric medications include: none, Primary psychiatric physician: the patient does not have a primary psychiatric physician, the patient has not had a prior suicide gesture, the patient does not have a previous inpatient psychiatric history, the patient's last psychiatric treatment was none. Associated signs and symptoms: Pertinent positives; anxiety, chest pain, headache, Cough , Pertinent negatives: abdominal pain, chills, delusions, depression, fever, hallucinations, homicidal ideation, nausea, night sweats, palpitations, paranoia, shortness of breath, substance abuse, suicide ideation, tremor, vomiting. Severity of symptoms: At their worst the symptoms were moderate 2 day(s) ago, in the emergency department the symptoms are unchanged. Patient was recently admitted for treatment of Covid pneumonia and discharged last week. He reports feeling anxious and difficulty with sleeping since being discharged.. Historical: - Allergies: 04/25 22:37 No Known Allergies; mw - Home Meds: 22:37 prednisone 20 mg Oral tab 1 tab 2 times per day [Active]; zinc sulfate 220 mg Oral cap mw daily [Active]; Vitamin C 500 mg Oral cpER twice a day [Active]; Xarelto 20 mg oral tab once daily [Active]; Vitamin B-12 Oral daily [Active]; benzonatate 100 mg oral cap 3 times per day for cough [Active]; Vitamin D Oral 2000 unit daily [Active]; - PMHx: 22:42 Anxiety; Asthma; mw - Immunization history:: Client reports having NOT received the Covid vaccine. - Social history:: Smoking status: Patient denies any tobacco usage or history of. - Family history:: Father has/had CVA or TIA, Grandfather has/had CVA or TIA. ROS: 04/26 01:21 Constitutional: Negative for fever, chills, and weight loss, Eyes: Negative for injury, mh7 pain, redness, and discharge, ENT: Negative for injury, pain, and discharge, Neck: Negative for injury, pain, and swelling, Respiratory: Negative for shortness of breath, cough, wheezing, and pleuritic chest pain, Abdomen/GI: Negative for abdominal pain, nausea, vomiting, diarrhea, and constipation, Back: Negative for injury and pain, : Negative for injury, bleeding, discharge, and swelling, MS/Extremity: Negative for injury and deformity, Skin: Negative for injury, rash, and discoloration, Allergy/Immunology: Negative for hives, rash, and allergies, Endocrine: Negative for neck swelling, polydipsia, polyuria, polyphagia, and marked weight changes, Hematologic/Lymphatic: Negative for swollen nodes, abnormal bleeding, and unusual bruising. Exam: 01:21 Constitutional: This is a well developed, well nourished patient who is awake, alert, mh7 and in no acute distress. Head/Face: Normocephalic, atraumatic. Eyes: Pupils equal round and reactive to light, extra-ocular motions intact. Lids and lashes normal. Conjunctiva and sclera are non-icteric and not injected. Cornea within normal limits. Periorbital areas with no swelling, redness, or edema. ENT: Nares patent. No nasal discharge, no septal abnormalities noted. Tympanic membranes are normal and external auditory canals are clear. Oropharynx with no redness, swelling, or masses, exudates, or evidence of obstruction, uvula midline. Mucous membranes moist. Neck: Trachea midline, no thyromegaly or masses palpated, and no cervical lymphadenopathy. Supple, full range of motion without nuchal rigidity, or vertebral point tenderness. No Meningismus. Chest/axilla: Normal chest wall appearance and motion. Nontender with no deformity. No lesions are appreciated. Cardiovascular: Regular rate and rhythm with a normal S1 and S2. No gallops, murmurs, or rubs. Normal PMI, no JVD. No pulse deficits. Respiratory: Lungs have equal breath sounds bilaterally, clear to auscultation and percussion. No rales, rhonchi or wheezes noted. No increased work of breathing, no retractions or nasal flaring. Abdomen/GI: Soft, non-tender, with normal bowel sounds. No distension or tympany. No guarding or rebound. No evidence of tenderness throughout. Back: No spinal tenderness. No costovertebral tenderness. Full range of motion. Skin: Warm, dry with normal turgor. Normal color with no rashes, no lesions, and no evidence of cellulitis. MS/ Extremity: Pulses equal, no cyanosis. Neurovascular intact. Full, normal range of motion. Neuro: Awake and alert, GCS 15, oriented to person, place, time, and situation. Cranial nerves II-XII grossly intact. Motor strength 5/5 in all extremities. Sensory grossly intact. Cerebellar exam normal. Normal gait. 01:21 Psych: Awake, alert, with orientation to person, place and time. Behavior, mood, and affect are within normal limits. 01:21 Constitutional: The patient appears anxious. Vital Signs: 04/25 22:25 BP 132 / 100; Pulse 88; Resp 12; Temp 96.6; Pulse Ox 100% on 2 lpm NC; Weight 90.72 kg; mw Height 5 ft. 6 in. (167.64 cm); Pain 10/10; 04/26 00:35 BP 164 / 99; Pulse 83; Resp 20; Temp 97.8; Pulse Ox 95% on R/A; mw2 03:00 BP 126 / 75; Pulse 70; Resp 16; Pulse Ox 97% on R/A; lp1 05:35 BP 139 / 93; Pulse 87; Resp 16; Pulse Ox 97% on R/A; Pain 0/10; lp1 04/25 22:25 Body Mass Index 32.28 (90.72 kg, 167.64 cm) MDM: 04:56 Differential diagnosis: Anxiety, headache, coronavirus. Data reviewed: vital signs, [facility] nurses notes, old medical records, lab test result(s), cardiac enzymes, CBC, EKG, radiologic studies, CT scan, plain films. Data interpreted: Pulse oximetry: on room air is 95 %. Interpretation: normal. Counseling: I had a detailed discussion with the patient and/or guardian regarding: the historical points, exam findings, and any diagnostic results supporting the discharge/admit diagnosis, the presence of at least one elevated blood pressure reading (>120/80) during this emergency department visit, lab results, radiology results, the need for outpatient follow up, to return to the emergency department if symptoms worsen or persist or if there are any questions or concerns that arise at home. Response to treatment: the patient's symptoms have resolved after treatment, the patient's blood pressure is in an acceptable range, mental status has returned to baseline, the patient no longer shows bradycardia, the patient is not short of breath, the patient is not tachycardic, the patient's pain is gone, the patient's temperature has normalized. 04:59 Patient medically screened. 04/26 01:17 Order name: Basic Metabolic Panel; Complete Time: 03:37 04/26 01:17 Order name: CBC with Diff; Complete Time: 02:34 04/26 01:17 Order name: LFT's; Complete Time: 03:37 04/26 01:17 Order name: Magnesium; Complete Time: 03:37 04/26 01:17 Order name: NT PRO-BNP; Complete Time: 03:37 04/26 01:17 Order name: PT-INR; Complete Time: 03:37 04/26 01:17 Order name: Troponin (emerg Dept Use Only); Complete Time: 03:37 04/26 01:17 Order name: XRAY Chest (1 view) 04/26 01:17 Order name: EKG; Complete Time: 01:17 04/26 01:17 Order name: Cardiac monitoring; Complete Time: 01:58 04/26 01:17 Order name: CT Head Brain wo Cont 04/26 01:17 Order name: EKG - Nurse/Tech; Complete Time: 02:49 04/26 01:17 Order name: IV Saline Lock; Complete Time: :58 04/26 01:17 Order name: Labs collected and sent; Complete Time: :58 04/26 01:17 Order name: O2 Per Protocol; Complete Time: :58 04/26 01:17 Order name: O2 Sat Monitoring; Complete Time: :58 Administered Medications: 02:15 Drug: NS 0.9% 1000 ml Route: IV; Rate: 1000 ml; Site: right antecubital; lp1 03:40 Follow up: IV Status: Completed infusion; IV Intake: 1000ml lp1 02:15 Drug: Reglan (metoCLOPramide) 10 mg Route: IVP; Site: right antecubital; lp1 03:40 Follow up: Response: Marked relief of symptoms lp1 02:15 Drug: Benadryl (diphenhydrAMINE) 50 mg Route: IVP; Site: right antecubital; lp1 03:40 Follow up: Response: No adverse reaction; Marked relief of symptoms lp1 Disposition Summary: 04/26/21 04:59 Discharge Ordered Location: Home [facility] Problem: an ongoing problem [facility] Symptoms: have improved [facility] Condition: Stable [facility] Diagnosis - Headache 7 - COVID 7 - Anxiety [facility] Followup: [facility] - With: Private Physician - When: 1 - 2 days - Reason: Worsening of condition, Recheck today's complaints, Continuance of care, Re-evaluation by your physician Followup: [facility] - With: Anmol Toussaint MD - When: 1 - 2 days - Reason: Worsening of condition, Recheck today's complaints Discharge Instructions: - Discharge Summary Sheet [facility] - General Headache Without Cause 7 - COVID-19 7 - Generalized Anxiety Disorder, Adult [facility] Forms: - Medication Reconciliation Form 7 - Thank You Letter [facility] - Antibiotic Education 7 - Prescription Opioid Use [facility] Signatures: Dispatcher [employer] Tatiana Britt RN RN Charles Rios RN RN em Pena, Laura, RN RN lp1 Brayan Delgadillo MD MD [facility] Corrections: (The following items were deleted from the chart) 04/25 21:55 21:53 Allergies: No Known Allergies; em em 55 21:53 Immunization history: Client reports having NOT received the Covid vaccine. em em 21:53 Social history: Smoking status: Patient denies any tobacco usage or history of. emem
--- NOTE | 2021-04-26 05:00 | ER ---
Nurse's Notes [facility] Name: Roman Smart Age: 40 yrs Sex: Male : 1980 Arrival Date: 04/25/2021 Time: 21:07 Bed Treatment Private MD: Diagnosis: Headache;COVID;Anxiety Presentation: 04/25 22:25 Chief complaint: Patient states: Patient was discharged form hospital with COVID on 04/22/2021. Unable to sleep, hands are numb. Having panic attacks. Head pressure. Coronavirus screen: Client reports previous positive COVID test result. Date of collection: April 16, 2021. Initial Sepsis Screen: Does the patient meet any 2 criteria? No. Patient's initial sepsis screen is negative. Risk Assessment: Do you want to hurt yourself or someone else? Patient reports no desire to harm self or others. Onset of symptoms was April 16, 2021. 22:25 Method Of Arrival: Ambulatory 22:25 Acuity: JANNY 3 04/26 02:00 Ebola Screen: No symptoms or risks identified at this time. Initial Sepsis Screen: Does lp1 the patient have a suspected source of infection? No. Patient's initial sepsis screen is negative. Triage Assessment: 04/25 22:42 General: Appears in no apparent distress. Behavior is calm, cooperative. Pain: Complains of pain in face and scalp Pain currently is 10 out of 10 on a pain scale. at worst was 10 out of 10 on a pain scale. Cardiovascular: No deficits noted. Respiratory: No deficits noted. Historical: - Allergies: 22:37 No Known Allergies; mw - Home Meds: 22:37 prednisone 20 mg Oral tab 1 tab 2 times per day [Active]; zinc sulfate 220 mg Oral cap mw daily [Active]; Vitamin C 500 mg Oral cpER twice a day [Active]; Xarelto 20 mg oral tab once daily [Active]; Vitamin B-12 Oral daily [Active]; benzonatate 100 mg oral cap 3 times per day for cough [Active]; Vitamin D Oral 2000 unit daily [Active]; - PMHx: 22:42 Anxiety; Asthma; mw - Immunization history:: Client reports having NOT received the Covid vaccine. - Social history:: Smoking status: Patient denies any tobacco usage or history of. - Family history:: Father has/had CVA or TIA, Grandfather has/had CVA or TIA. Screenin/15 02:00 Abuse screen: Denies threats or abuse. Denies injuries from another. Nutritional lp1 screening: No deficits noted. Tuberculosis screening: No symptoms or risk factors identified. Fall Risk None identified. Assessment: 01:58 General: Appears in no apparent distress. Behavior is calm, cooperative. Pain: lp1 Complains of pain in chest, head Pain does not radiate. Pain began gradually. Neuro: Level of Consciousness is awake, alert, obeys commands, Oriented to person, place, time, situation, Reports headache inability to sleep the last "couple days". Cardiovascular: Patient's skin is warm and dry. Respiratory: Respiratory effort is even, unlabored, Breath sounds are clear bilaterally. GI: Abdomen is non-distended. : No signs and/or symptoms were reported regarding the genitourinary system. EENT: No signs and/or symptoms were reported regarding the EENT system. Derm: Skin is pink, warm \\T\\ dry. Musculoskeletal: No deficits noted. 03:30 Reassessment: Patient appears in no apparent distress at this time. Patient and/or lp1 family updated on plan of care and expected duration. Pain level reassessed. Patient is alert/active/playful, equal unlabored respirations, skin warm/dry/pink. 05:34 Reassessment: Patient is alert, oriented x 3, equal unlabored respirations, skin lp1 warm/dry/pink. Reports able to have a small amount of restful sleep while here Patient states feeling better. Vital Signs: 04/25 22:25 BP 132 / 100; Pulse 88; Resp 12; Temp 96.6; Pulse Ox 100% on 2 lpm NC; Weight 90.72 kg; mw Height 5 ft. 6 in. (167.64 cm); Pain 10/10; 04/26 00:35 BP 164 / 99; Pulse 83; Resp 20; Temp 97.8; Pulse Ox 95% on R/A; mw2 03:00 BP 126 / 75; Pulse 70; Resp 16; Pulse Ox 97% on R/A; lp1 05:35 BP 139 / 93; Pulse 87; Resp 16; Pulse Ox 97% on R/A; Pain 0/10; lp1 04/25 22:25 Body Mass Index 32.28 (90.72 kg, 167.64 cm) ED Course: 04/25 21:07 Patient arrived in ED. bp1 21:53 Triage completed. em 22:42 Arm band placed on right wrist. 04/26 00:33 Brayan Delgadillo MD is Attending Physician. 7 00:54 Yumiko Carmona, RN is Primary Nurse. lp1 01:58 Inserted saline lock: 20 gauge in right antecubital area, using aseptic technique. lp1 Blood collected. 02:00 Patient has correct armband on for positive identification. traffic observer on. Pulse lp1 ox on. NIBP on. 02:05 XRAY Chest (1 view) In Process Unspecified. EDMS 02:15 CT Head Brain wo Cont In Process Unspecified. EDMS 03:00 Patient maintains SpO2 saturation greater than 95% on room air. lp1 04:58 Anmol Toussaint MD is Referral Physician. [facility] 05:35 No provider procedures requiring assistance completed. IV discontinued, No lp1 redness/swelling at site. Pressure dressing applied. Administered Medications: 02:15 Drug: NS 0.9% 1000 ml Route: IV; Rate: 1000 ml; Site: right antecubital; lp1 03:40 Follow up: IV Status: Completed infusion; IV Intake: 1000ml lp1 02:15 Drug: Reglan (metoCLOPramide) 10 mg Route: IVP; Site: right antecubital; lp1 03:40 Follow up: Response: Marked relief of symptoms lp1 02:15 Drug: Benadryl (diphenhydrAMINE) 50 mg Route: IVP; Site: right antecubital; lp1 03:40 Follow up: Response: No adverse reaction; Marked relief of symptoms lp1 Intake: 03:40 IV: 1000ml; Total: 1000ml. lp1 Outcome: 04:59 Discharge ordered by . 7 05:35 Discharged to home ambulatory. lp1 05:35 Condition: good 05:35 Discharge instructions given to patient, Instructed on discharge instructions, follow up and referral plans. Demonstrated understanding of instructions, follow-up care. 05:35 Patient left the ED. lp1 Signatures: Dispatcher [employer] Tatiana Britt RN RN Charles Rios RN RN Yumiko Carmona, BETO PÉREZ lp1 Jefry Trimble mw2 Jazmyne Ambrocio Maurice, MD MD mh7 Corrections: (The following items were deleted from the chart) 04/25:52 Chief complaint: Patient's son or daughter states: son states she was not feeling em well and had low BP, also reports shortness of breath em 21: Coronavirus screen: Client denies travel out of the [place] in the last 14 days. em em 21:52 Ebola Screen: Patient negative for fever greater than or equal to 101.5 degrees em Fahrenheit, and additional compatible Ebola Virus Disease symptoms Patient denies exposure to infectious person. Patient denies travel to an Ebola-affected area in the 21 days before illness onset. No symptoms or risks identified at this time. em : Initial Sepsis Screen: Does the patient meet any 2 criteria? HR > 90 bpm. No. em Patient's initial sepsis screen is negative. Does the patient have a suspected source of infection? No. Patient's initial sepsis screen is negative. em 21:52 Risk Assessment: Do you want to hurt yourself or someone else? Patient reports no em desire to harm self or others. em 21:52 Onset of symptoms was April 25, 2021 em em 21:52 Method Of Arrival: Wheelchair em 21:52 BP 83 / 55; Pulse 109bpm; Resp 20bpm; Pulse Ox 97% RA; Temp 99.6F; Pain 0/10; em em 21:52 Acuity: JANNY 2 em em 21:53 Allergies: No Known Allergies; em em 21:53 Immunization history: Client reports having NOT received the Covid vaccine. em em 21:53 Social history: Smoking status: Patient denies any tobacco usage or history of. emem 21:53 Arm band placed on em em
[2021-04-26 05:43] VITALS: TEMP 97.8
[2021-04-26 05:44] VITALS: BP 139/93; O2SAT 97
--- NOTE | 2021-04-26 08:18 | RAD REPORT ---
EXAM DESCRIPTION: RAD - Chest Single View - 04/26/2021 2:04 am CLINICAL HISTORY: Chest pain;Cough COMPARISON: Chest Single View dated 04/20/2021; Chest Single View dated 04/16/2021 FINDINGS: Improved aeration of the lungs bilaterally. There is still some mild residual airspace [place] The heart size is within normal limits.No acute osseous abnormality. No significant pleural ef fusions or pneumothorax. IMPRESSION: Improved aeration of the lungs compared with 04/20/2021 with only mild residual airspace disease.
--- NOTE | 2021-04-27 12:31 | RAD REPORT ---
EXAM DESCRIPTION: CT - Head Brain Wo Cont - 04/26/2021 6:37 am CLINICAL HISTORY: 40 years Male HEADACHE TECHNIQUE: Axial noncontrast CT head with coronal and sagittal reformats. All CT scans at this [facility] use dose modulation, iterative reconstruction, and/or weight based dosing when appropriate to red uce radiation dose to as low as reasonably achievable. COMPARISON: None. FINDINGS: Brain: No intracranial hemorrhage, midline shift, mass or mass effect. No obvious large ac [place] infarction. Ventricles: No hydrocephalus. Orbits: Unremarkable. Sinuses: Visualized portions are clear. Mastoid: Clear. Osseous: Unremarkable. Soft tissues: Unremarkable. IMPRESSION: No acute findings. Electronically signed by: Venkata Nye MD 04/26/2021 2:33 AM CDT Due to temporary technical issues with the PACS/Fluency reporting system, reports are being signed by the in house radiologist without review as a courtesy to ensure prompt reporting. The interpreting r adiologist is fully responsible for the content of the report.
== END 2021-04-26 05:35 | disposition home or self-care (01) ==
LOC: ER 21:04
DX: U07.1 COVID-19 (principal); F41.9 Anxiety disorder, unspecified; Z79.01 Long term (current) use of anticoagulants
CPT/HCPCS: 96361; 93005; 85025; 80048; 36415; 83735; 85610; 80076; 84484; 83880; 70450; 71045; 96375; 96374; 99285; J2765; J1200; J7030